=== PATIENT | female | born 1965 | race Caucasian/White ===

== ENCOUNTER → 2018-09-02 | Outpatient (CLI) | payer BC | LOC: M WHC 15:29 | DX: Z12.31 Encounter for screening mammogram for malignant neoplasm of breast (principal); N60.31 Fibrosclerosis of right breast; N60.32 Fibrosclerosis of left breast | CPT/HCPCS: 77067 ==

== ENCOUNTER → 2019-09-08 | Outpatient (CLI) | payer BC ==
[~2019-09-08] MED LIST: ESTR0.5T3 PO; OMEP20CA4 PO
--- NOTE | 2019-09-08 16:52 | REPMRS ---
Patient History The patient states she had a clinical breast exam in 08/2019. Patient is postmenopausal. Family history of pancreatic cancer at age 50 or over in maternal aunt. Taking estrogen for 9 years. Digital Woman Screen Mammo: September 08, 2019 - Exam #: [id number] Bilateral CC and MLO view(s) were taken. Technologist: Anabell Pablo, Technologist Prior study comparison: September 02, 2018, bilateral digital woman screen mammo performed at [facility]. August 29, 2017, digital woman screen mammo performed at [facility]. August 28, 2016, digital woman screen mammo performed at [facility]. FINDINGS: The breast tissue is heterogeneously dense. This may lower the sensitivity of mammography. There is a moderate amount of heterogeneously dense fibroglandular tissue which is fairly symmetric. There is no interval development of dominant mass, architectural distortion, or grouped microcalcification typical of malignancy. There has been no change in the appearance of the mammogram from the prior studies. 3-D tomosynthesis shows no additional findings. Assessment: BI-RADS/ACR category 1 mammogram. Negative Mammogram. Recommendation Routine screening mammogram of both breasts in 1 year (for women over age 40). This patient's Lifetime Breast Cancer RIsk is estimated at 5.4 %. This mammogram was interpreted with the aid of an FDA-approved computer-aided dectection system. Electronically Signed By: Beny Lebron MD 09/08/19 [id number]
== END ==
LOC: M WHC 15:16
PROVIDERS: ATTEND Nurse Practitioner Family
DX: Z12.31 Encounter for screening mammogram for malignant neoplasm of breast (principal); Z80.0 Family history of malignant neoplasm of digestive organs

== ENCOUNTER → 2020-09-09 | Outpatient (CLI) | payer BC ==
[~2020-09-09] MED LIST changes: +OMEP1CAP73 PO; -OMEP20CA4 PO
--- NOTE | 2020-09-09 16:56 | REPMRS ---
Patient History The patient states she had a clinical breast exam in 08/2020. Patient is postmenopausal. Family history of pancreatic cancer at age 50 or over in maternal aunt, colorectal cancer at age 73 in father, endometrial cancer at age 50 or over in maternal aunt, pancreatic cancer in maternal cousin. Taking estrogen for 10 years. Digital Woman Screen Mammo: September 09, 2020 - Exam #: [id number] Bilateral CC and MLO view(s) were taken. Technologist: Anabell Pablo, Technologist Prior study comparison: September 08, 2019, bilateral digital woman screen mammo performed at [facility]. September 02, 2018, bilateral digital woman screen mammo performed at [facility]. August 29, 2017, digital woman screen mammo performed at [facility]. FINDINGS: The breast tissue is heterogeneously dense. This may lower the sensitivity of mammography. The Volpara volumetric breast density category is: C. There is a moderate amount of heterogeneously dense fibroglandular tissue which is fairly symmetric. There is no interval development of dominant mass, architectural distortion, or grouped microcalcification typical of malignancy. There has been no change in the appearance of the mammogram from the prior studies. 3-D tomosynthesis shows no additional findings. Assessment: BI-RADS/ACR category 1 mammogram. Negative Mammogram. Recommendation Routine screening mammogram of both breasts in 1 year (for women over age 40). This patient's Lifetime Breast Cancer RIsk is estimated at 5.3 %. This mammogram was interpreted with the aid of an FDA-approved computer-aided dectection system. Electronically Signed By: Beny Lebron MD 09/09/20 [id number]
--- NOTE | 2020-09-09 16:57 | DEXA ---
INDICATION: Z78.0 MENOPAUSAL. COMPARISON: June 09, 2010. TECHNIQUE: Bone density was measured using dual-energy x-ray absorptionmetry (DEXA). FINDINGS: AP SPINE L1-L4 BMD 1.043 g/cm2 Young Adult T-Score -1.2 Age Matched Z-Score -0.6. LT FEMUR, TOTAL BMD 0.775 g/cm2 Young Adult T-Score -1.8 Age Matched Z-Score -1.3. LT NECK BMD 0.738 g/cm2 Young Adult T-Score -2.2 Age Matched Z-Score -1.2. RT FEMUR, TOTAL BMD 0.780 g/cm2 Young Adult T-Score -1.8 Age Matched Z-Score -1.2. RT NECK BMD 0.718 g/cm2 Young Adult T-Score -2.3 Age Matched Z-Score -1.4. IMPRESSION: There is low bone density of the spine. There is low bone density of the left hip. There is low bone density of the right hip. The density of the spine has decreased 5.2% since the initial exam on June 09, 2010. The density of the left hip has decreased 2.9% since initial exam on June 09, 2010. The density of the right hip has decreased 7.6% since the initial exam on June 09, 2010. FOLLOW-UP: Recommendation for the next bone density exam: 2 years. <Electronically signed by Beny Lebron > 09/09/20 [id number]
== END ==
LOC: M WHC 14:58
PROVIDERS: ATTEND Nurse Practitioner Family
DX: Z12.31 Encounter for screening mammogram for malignant neoplasm of breast (principal); Z78.0 Asymptomatic menopausal state; Z80.0 Family history of malignant neoplasm of digestive organs; M85.88 Other specified disorders of bone density and structure, other site; M85.851 Other specified disorders of bone density and structure, right thigh; M85.852 Other specified disorders of bone density and structure, left thigh

== ENCOUNTER → 2021-10-04 | Outpatient (CLI) | payer BC ==
--- NOTE | 2021-10-04 11:57 | REPMRS ---
Patient History Patient is postmenopausal. Family history of pancreatic cancer at age 50 or over in maternal aunt, colorectal cancer at age 73 in father, endometrial cancer at age 50 or over in maternal aunt, pancreatic cancer in maternal cousin. Took estrogen for 11 years. No breast complaints. Covid vaccines 02/2021 left arm. 03/2021 left arm. Patient states no breast complaints today. Patient has signed MRS History Sheet. Digital Woman Screen Mammo: October 04, 2021 - Exam #: [id number] Bilateral CC and MLO view(s) were taken. Technologist: RT Rodney Prior study comparison: September 09, 2020, bilateral digital woman screen mammo performed at [facility], [place]. September 08, 2019, bilateral digital woman screen mammo performed at [facility] [place]. FINDINGS: The breast tissue is heterogeneously dense. This may lower the sensitivity of mammography. Screening. Digital screening (2D) mammography was performed bilaterally in the CC and MLO projections. Additionally, breast tomosynthesis (3D mammography) was performed bilaterally in the CC and MLO projections. Todays exam was compared to the prior exam/exams. By history, the patient has no complaints of a palpable breast abnormality or other significant breast complaints. The Volpara volumetric breast density category is C, the breasts are heterogenously dense which may obscure small masses. The breasts are unchanged in size and shape. There are no shannon-soft tissue densities or spiculated masses. There is no internal architectural distortion. There are no suspicious shannon-calcific clusters. Skin thickening or nipple retraction is not present. IMPRESSION: BI-RADS Category 2- Benign Findings. There is no evidence of malignant alteration of the breasts. Followup examination recommended in one year. This mammogram was read with the assistance of [employer],an FDA approved computer aided detection system for mammography. The lifetime Tyrer-Cuzick score is 5.1% Negative x-ray reports should not delay surgical consultation if a dominant or clinically suspicious mass is present. Due to the density of the breasts, MRI/whole breast screening ultrasound is warranted. Not all breast cancers can be identified by mammography. Therefore, we recommend that you continue to perform regular breast self-examination and physical examination and then promptly contact your physician of any concerns or changes. Adenosis and dense breasts may obscure an underlying neoplasm. No significant changes when compared with prior studies. Assessment: BI-RADS/ACR category 2 mammogram. Benign Findings. Recommendation Routine screening mammogram of both breasts in 1 year. Electronically Signed By: Olegario Gutierrez MD 10/04/21 [id number]
== END ==
LOC: M WHC 10:25
PROVIDERS: ATTEND Nurse Practitioner Women's Health
DX: Z12.31 Encounter for screening mammogram for malignant neoplasm of breast (principal); Z78.0 Asymptomatic menopausal state; R92.2 Inconclusive mammogram

== ENCOUNTER 2023-11-22 05:41 | Emergency (ER) | payer BC ==
[~2023-11-22] VITALS: Ht 160 cm; Wt 75.0 kg
[2023-11-22 06:31] LABS: BASO % 0.7 % (0.0-1.0); HEMATOCRIT 44.2 % (36.0-47.0); HEMOGLOBIN 14.9 g/dl (12.0-15.5); LYMPH # 0.6 10^3/uL (1.5-5.0); LYMPH % 10.8 % (24.0-44.0); MEAN CORPUSCULAR HEMOGLOBIN 28.9 pg (27.0-33.0); MEAN CORPUSCULAR HGB CONC 33.7 g/dl (32.0-36.5); MEAN CORPUSCULAR VOLUME 85.8 fl (80.0-96.0); MONO # 0.9 10^3/uL (0.0-0.8); MONO % 14.9 % (2.0-8.0); NEUTROPHILS # 4.3 10^3/uL (1.5-8.5); NEUTROPHILS % 73.4 % (36.0-66.0); PLATELET COUNT, AUTOMATED 200 10^3/uL (150-450); RED BLOOD COUNT 5.15 10^6/uL (4.00-5.40); WHITE BLOOD COUNT 5.9 10^3/uL (4.0-10.0)
[2023-11-22 06:54] LABS: CPK CREATINE PHOSPHOKINASE 72 U/L (34-145)
[2023-11-22 06:55] LABS: ALBUMIN 3.6 G/DL (3.2-5.2); ALKALINE PHOSPHATASE 93 U/L (46-116); ALT/SGPT 61 U/L (7.0-40); AST/SGOT 54 U/L (<34); BILIRUBIN,DIRECT 0.2 MG/DL (<0.4); BILIRUBIN,TOTAL 0.5 MG/DL (0.3-1.2); BLOOD UREA NITROGEN 18 MG/DL (9-23); CALCIUM LEVEL 8.1 MG/DL (8.5-10.1); CARBON DIOXIDE LEVEL 23 MMOL/L (20-31); CHLORIDE LEVEL 104 MMOL/L (98-107); CK-MB VALUE MASS < 1.0 NG/ML (<3.6); GLOMERULAR FILTRATION RATE > 60.0 (>51); GLUCOSE, FASTING 86 MG/DL (60-100); MB/CK RELATIVE INDEX 1.38 (< OR =4); POTASSIUM SERUM 3.9 MMOL/L (3.5-5.1); SODIUM LEVEL 135 MMOL/L (136-145); TOTAL PROTEIN 7.1 G/DL (5.7-8.2)
[2023-11-22 06:57] LABS: THYROID STIMULATING HORMONE 0.669 uIU/ML (0.55-4.78)
[2023-11-22] MEDS ORDERED: NS 1,000 ML IV ONE (07:05)
[2023-11-22] MEDS ORDERED: HOME MED LIST COMPLETE! XX SCH (10:40)
[2023-11-22] MEDS ORDERED: NIRMATRELVIR/RITONAVIR CO-PACK (EMERGENCY USE AUTH) PO SCH ×2 (10:45→21:00)
[2023-11-22 11:15] VITALS: BP 148/78; TEMP 98; O2SAT 98
== END 2023-11-22 11:30 | disposition home or self-care (01) ==
LOC: M ED 05:41
DX: U07.1 COVID-19 (principal)